=== PATIENT | male | born 1940 | race Caucasian/White ===

== ENCOUNTER 2018-07-30 21:50 | Emergency (ER) | payer MEDICAID, MEDICARE ==
[~2018-07-30] VITALS: Ht 177.8 cm; Wt 90.6 kg
--- NOTE | 2018-07-30 22:17 | NUR ---
PT WAS AMBULATORY TO ED ROOM 30. A&OX4, RESP EVEN & UNLABORED, SPEECH CLEAR, SKIN WNL. C/O LOWER ABD PAIN X 2 DAYS. VOMITED 2 DAYS AGO. LAST ORAL INTAKE: 1400 TODAY, VOMITED AFTER. LAST BM: 3-4 DAYS AGO. DENIES TAKING MEDS FOR SX. STATES HE PLACED HIS PULSATING SHOWER HEAD AGAINST LOWER ABD & HAD RELIEF OF PAIN.
--- NOTE | 2018-07-30 22:32 | NUR ---
DR VU BS FOR EXAM
[2018-07-30 22:55] LABS: BASOPHILS # (AUTO) 0.01 x10^3/uL (0-0.1); BASOPHILS % (AUTO) 0 % (0-1); EOSINOPHILS % (AUTO) 0 % (1-7); LYMPHOCYTES # (AUTO) 1.46 x10^3/uL (1-3.4); LYMPHOCYTES % (AUTO) 10 % (22-44); MD NO; MEAN CORPUSCULAR HEMOGLOBIN 31.8 pg (27.5-34.5); MEAN CORPUSCULAR HGB CONC 34.6 g/dL (33.2-36.2); MEAN CORPUSCULAR VOLUME 91.9 fL (81-97); MEAN PLATELET VOLUME 9.5 fL (7.4-10.4); MONOCYTES # (AUTO) 1.29 x10^3/uL (0.2-0.8); MONOCYTES % (AUTO) 9 % (2-9); NEUTROPHILS # (AUTO) 12.53 x10^3/uL (1.8-6.8); NEUTROPHILS % (AUTO) 82 % (42-75); PLATELET COUNT 239 x10^3/uL (130-400); RED BLOOD COUNT 5.16 x10^6/uL (4.38-5.82); RED CELL DISTRIBUTION WIDTH 13.4 % (9.4-14.8)
[2018-07-30] MEDS ORDERED: SODIUM CHLORIDE FLUSH 10ML SYR IVF ONE (23:00)
[2018-07-30] MEDS ORDERED: SODIUM CHLORIDE 0.9% 1,000ML IVBOLUS ONE (23:00)
[2018-07-30 23:04] VITALS: BP 156/90
[2018-07-30 23:06] LABS: ALANINE AMINOTRANSFERASE 30 U/L (12-78); ANION GAP 10 mmol/L (5-15); CALCIUM 9.1 mg/dL (8.5-10.1); CHLORIDE 108 mmol/L (98-107); CREATININE 1.53 mg/dL (0.7-1.3); INTERNATIONAL NORMALIZED RATIO 1.01 (0.93-1.1); PROTHROMBIN TIME 10.7 Seconds (9.6-11.5)
[2018-07-30 23:07] LABS: MICROSCOPIC AUTO
[2018-07-30 23:08] LABS: CULTURE INDICATED? YES
[2018-07-30 23:09] LABS: ALKALINE PHOSPHATASE 51 U/L (45-117); TOTAL PROTEIN 8.1 g/dL (6.4-8.2)
--- NOTE | 2018-07-30 23:10 | NUR ---
RECEIVED REPORT FROM JOY PERSAUD.
--- NOTE | 2018-07-30 23:11 | NUR ---
PT REPORT TO SYLVIE Castro RN. PT CARE TRANSFERRED.
--- NOTE | 2018-07-30 23:21 | NUR ---
patient to CT scan.
--- NOTE | 2018-07-30 23:55 | NUR ---
back from CT scan. awaiting result.
--- NOTE | 2018-07-31 00:48 | NUR ---
re-evaluation done. patient discharged with instruction. verbalized understanding.
== END 2018-07-31 00:51 | disposition home or self-care (01) ==
LOC: ED 23:59
DX: N20.1 Calculus of ureter (principal); R31.9 Hematuria, unspecified
CPT/HCPCS: 36415; 74176; 80053; 81001; 83690; 85025; 85610; 85730; 87086; 99284; J7030; 96360